=== PATIENT | female | born 1970 | race Caucasian/White ===

== ENCOUNTER → 2019-05-14 10:40 | Outpatient (CLI) | payer OTHER, SELFPAY ==
--- NOTE | ~2019-05-14 | US_ITS ---
EXAMINATION: US thyroid DATE: 05/14/2019 11:05 INDICATION: Thyroid nodule TECHNIQUE: Multiple ultrasound images of the thyroid were obtained. COMPARISON: None. FINDINGS: The right thyroid lobe measures 4.6 x 1.8 x 1.5 cm. The left thyroid lobe measures 3.7 x 1.2 x 1.2 c m. Thyroid isthmus measures 2 mm in thickness. No significant interval change in a 5 mm solid hypoech oic wider than tall nodule with smooth margins and without internal echogenic foci (TI-RADS 4, modera tely suspicious , FNA if >=1.5 cm, annual followup is >1 cm) in the mid left thyroid. There is normal echotexture, echogenicity and vascular flow throughout the thyroid gland. IMPRESSION: 1. No interval change in a likely benign left thyroid nodule which does not meet criteria for either biopsy or follow-up. Reviewed, dictated and finalized at location B. IMPRESSION: 1. No interval change in a likely benign left thyroid nodule which does not kristopher t criteria for either biopsy or follow-up.
== END ==
PROVIDERS: PCP Physician Assistant; Visit Provider Internal Medicine Endocrinology, Diabetes & Metabolism
DX: E04.1 Nontoxic single thyroid nodule (principal)
CPT/HCPCS: 76536

== ENCOUNTER 2019-11-23 15:39 | Outpatient (CLI) | payer OTHER, SELFPAY ==
--- NOTE | ~2019-11-23 | MM_ITS ---
EXAMINATION: MM screening [facility] BI w toya HISTORY: Screening TECHNIQUE: Craniocaudal and mediolateral oblique 3-D tomosynthesis images were obtained and synthetic 2-D images were generated. CAD analysis was submitted and interpreted. COMPARISON: Comparison to multiple prior studies sequentially, with oldest reviewed study dated 08/2017. BREAST PARENCHYMAL COMPOSITION: There are scattered areas of fibroglandular density. FINDINGS: There is a focal asymmetry centrally in the right breast on CC view. The left breast is sta ble without evidence for malignancy. IMPRESSION: 1. Focal right breast asymmetry centrally on CC view. 2. Additional mammographic views and possible breast ultrasound are recommended. BI-RADS Category 0: Incomplete: Needs additional imaging evaluation. Reviewed, dictated and finalized at location A. IMPRESSION: 1. Focal right breast asymmetry centrally on CC view. 2. Additional mammographic views and possible breast ultrasound are recommended . BI-RADS Category 0: Incomplete: Needs additional imaging evaluation.
== END 2019-11-23 15:40 | disposition home or self-care (01) ==
LOC: ANHIMG 15:42
PROVIDERS: PCP Physician Assistant; Visit Provider Physician Assistant
DX: Z12.31 Encounter for screening mammogram for malignant neoplasm of breast (principal); R92.8 Other abnormal and inconclusive findings on diagnostic imaging of breast
CPT/HCPCS: 77063; 77067

== ENCOUNTER → 2019-12-13 09:18 | Outpatient (CLI) | payer OTHER, SELFPAY ==
--- NOTE | ~2019-12-13 | MMUS_ITS ---
EXAMINATION: MM diagnostic mammo unilat RT, US breast RT complete HISTORY: Right breast asymmetry follow-up TECHNIQUE: Additional 3-D tomosynthesis images of the right breast were performed and synthetic 2-D i mages were generated. CAD analysis was submitted and interpreted. High resolution right breast ultras ound was performed. COMPARISON: Comparison to multiple prior studies sequentially, with oldest reviewed study dated 08/2017. BREAST PARENCHYMAL COMPOSITION: BREAST PARENCHYMAL COMPOSITION: There are scattered areas of fibroglandular density. FINDINGS: MAMMOGRAPHIC FINDINGS: There are no suspicious masses, calcifications or architectural distortion in the right breast to sug gest malignancy. ULTRASOUND: Right breast ultrasound, complete: Normal heterogeneous echotexture without focal solid or cystic mas s. IMPRESSION: 1. No evidence for malignancy in the right breast. 2. Routine yearly screening mammogram and regular clinical breast examination are recommended. BI-RADS Category 1: Negative Reviewed, dictated and finalized at location A. TION ACCOUNTANT IMPRESSION: 1. No evidence for malignancy in the right breast. 2. Routine yearly screening mammogram and regular clinical breast examination a re recommended. BI-RADS Category 1: Negative
== END ==
PROVIDERS: PCP Physician Assistant; Visit Provider Physician Assistant
DX: R92.8 Other abnormal and inconclusive findings on diagnostic imaging of breast (principal)
CPT/HCPCS: 76641; 77065

== ENCOUNTER 2020-02-15 00:36 | Outpatient (CLI) | payer OTHER, SELFPAY ==
[2020-02-15 19:42] LABS: SARS-CoV-2 RNA PCR Negative
== END 2020-02-15 00:37 | disposition home or self-care (01) ==
LOC: ANHCOVIDDT 00:36
PROVIDERS: PCP Physician Assistant; Visit Provider Internal Medicine Gastroenterology
DX: Z01.812 Encounter for preprocedural laboratory examination (principal); Z20.822 Contact with and (suspected) exposure to COVID-19
CPT/HCPCS: C9803; U0003

== ENCOUNTER 2020-02-18 00:12 | Day surgery (SDC) | payer OTHER, SELFPAY ==
[2020-02-02 11:31] VITALS: BMI 29.3
[2020-02-18 07:44] VITALS: BP 107/61; PULSE 53; RESP 18; TEMP 36.3; O2SAT 99; BMI 29.5
[2020-02-18] MEDS: LACTATED RINGERS 1,000 ML 150 ML IV CONT (07:47)
--- NOTE | 2020-02-18 08:04 | WPDANESEPPF ---
Anes - Initial Pre Proc Eval Procedure: Operation Date: 02/18/20 08:30 Proposed Procedures p Screening Colonoscopy - Pool Uribe MD Date/Time: 02/18/20 08:04 Surgeon: Pool Uribe MD Pre Op Diagnosis: Neoplasm Screening Patient Data Age: 49 Gender: F Height: 5 ft 5 in Weight: 80.6 kg Last Vital Signs Temp 97.3 F L 02/18/20 07:44 Pulse 53 L 02/18/20 07:44 Resp 18 02/18/20 07:44 BP 107/61 02/18/20 07:44 Pulse Ox 99 02/18/20 07:44 Allergies Allergy/AdvReac Type Severity Reaction Status Date / Time meperidine [From Demerol] Allergy Severe Vomiting Verified 02/18/20 07:41 prochlorperazine Allergy Severe Swelling Verified 02/18/20 07:41 [From Compazine] of Lip/Tongue/Throat shellfish derived Allergy Severe Anaphylactic Verified 02/18/20 07:41 Shock Home Medications Medication Instructions Recorded Confirmed Type estradiol 1 mg PO DAILY 02/02/20 02/18/20 History Patient hx anesthesia problems: none Family hx anesthesia problems: none PMFSH Past Medical History Medical History (Updated 11/30/19 @ 09:39 by Dillon Cat) Colonoscopy planned Family History Family History (Updated 09/11/17 @ 09:24 by DOCTOR UNKNOWN) Grandparent Family history of lung cancer Family history of malignant neoplasm of breast Social History Social History Smoking status: Never smoker Second hand tobacco smoke exposure: No Alcohol intake: current Substance use: never Substance use type: does not use Spiritual care concerns: No Anes - Eval Final PreProcedure Day of Procedure 02/18/20 08:04 Patient weight: overweight Heart: regular rate and rhythm Lungs: clear to auscultation Airway: Mallampati scale class II Neurological: alert and oriented Last oral intake: >/= 8 hours ASA classification: II Emergent: no Anesthetic plan: proceed Anesthesia type and monitoring: general GIVS and standard monitoring Informed Consent: The patient's anesthetic plan and its attendant risks and benefits were discussed with the patient/family/POA. Questions were solicited and answers provided to the satisfaction of the patient/family/POA.
--- NOTE | 2020-02-18 08:17 | PM.HPGS ---
History of Present Illness History of Present Illness Consent: Risks, benefits, and alternatives have been discussed and questions answered. Patient agrees to proceed with procedure. Chief complaint: Neoplasm Screening Narrative: Carolyn Tuttle is a 49 year old female here for first screening colonoscopy Review of Systems Constitutional: Constitutional: Denies headache(s) and Denies weakness Eyes: Eyes: Denies blurry vision ENT: Reports Normal hearing present, Denies headache(s) and Denies neck pain Cardiovascular: Cardiovascular: Denies chest pain and Denies dyspnea Respiratory: Respiratory: Denies dyspnea Gastrointestinal: Gastrointestinal: Reports no additional gastrointestinal complaints Genitourinary: Genitourinary: Denies dysuria Musculoskeletal: Musculoskeletal: Denies neck pain Integumentary/Breasts: Skin/Breast: Denies dry skin Neurologic: Reports Normal hearing present, Denies headache(s) and Denies weakness Psychiatric: Psychiatric: Denies anxiety Endocrine: Endocrine: Denies change in body appearance Hematologic/Lymphatic: Hematologic/Lymphatic: Denies easy bleeding Allergic/Immunologic: Allergic/Immunologic: Denies urticaria PMF Past Medical History Medical History (Updated 02/18/20 @ 08:17 by Pool Uribe MD) Colon cancer screening Colonoscopy planned Family History Family History (Updated 09/11/17 @ 09:24 by DOCTOR UNKNOWN) Grandparent Family history of lung cancer Family history of malignant neoplasm of breast Social History Social History Smoking status: Never smoker Second hand tobacco smoke exposure: No Alcohol intake: current Substance use: never Substance use type: does not use Spiritual care concerns: No Meds Home Medications and Allergies Home Medications Medication Instructions Recorded Confirmed Type estradiol 1 mg PO DAILY 02/02/20 02/18/20 History Allergies Allergy/AdvReac Type Severity Reaction Status Date / Time meperidine [From Demerol] Allergy Severe Vomiting Verified 02/18/20 07:41 prochlorperazine Allergy Severe Swelling Verified 02/18/20 07:41 [From Compazine] of Lip/Tongue/Throat shellfish derived Allergy Severe Anaphylactic Verified 02/18/20 07:41 Shock Vital Signs Vital Signs - 24 hr 02/18/20 07:44 Temperature 97.3 F L Pulse Rate 53 L Respiratory Rate 18 Blood Pressure 107/61 Pulse Oximetry 99 Exam Const: General: comfortable and no acute distress HENMT: General nose exam: Normal nares present Eyes: General: appearance normal, both eyes and all related structures Neck: Neck: no JVD Resp: Auscultation: clear to auscultation bilaterally Cardio: Rate: regular rate Rhythm: regular rhythm GI: Inspection: non-distended GI Palp: Yes Soft to palpation Skin: General skin exam: normal color Neuro: General: gait normal Speech: normal speech Extrem: General: normal to inspection Psych: Mental Status: mental status grossly normal Assessment and Plan Assessment and plan (1) Colon cancer screening: Code(s): Z12.11 - Encounter for screening for malignant neoplasm of colon Status: Acute Assessment and Plan: will proceed with colonoscopy
[2020-02-18 08:44] VITALS: BP 91/52; PULSE 63; RESP 22; O2SAT 100
[2020-02-18 08:54] VITALS: BP 93/55; PULSE 60; RESP 22; O2SAT 99
[2020-02-18 09:04] VITALS: BP 105/72; PULSE 58; RESP 18; O2SAT 100
[2020-02-18 09:09] VITALS: BP 109/70; PULSE 55; RESP 20; O2SAT 100
== END 2020-02-18 09:14 | disposition home or self-care (01) ==
PROVIDERS: PCP Physician Assistant; Visit Provider Internal Medicine Gastroenterology
PROC: 0DJD8ZZ Inspection of Lower Intestinal Tract, Via Natural or Artificial Opening Endoscopic (ICD-10-PCS; CPT 45378; principal; 2020-02-18 08:30)
DX: Z12.11 Encounter for screening for malignant neoplasm of colon (principal); K57.30 Diverticulosis of large intestine without perforation or abscess without bleeding
CPT/HCPCS: 45378; C9803; J2704; J7120; U0003

== ENCOUNTER 2020-02-18 06:57 | Outpatient (CLI) | payer OTHER, SELFPAY | END 2020-02-18 06:58 | disposition home or self-care (01) | PROVIDERS: PCP Physician Assistant; Visit Provider Urology | DX: N39.3 Stress incontinence (female) (male) (principal); Z01.812 Encounter for preprocedural laboratory examination | CPT/HCPCS: 87086 ==

== ENCOUNTER 2020-02-22 03:05 | Outpatient (CLI) | payer OTHER, SELFPAY ==
[2020-02-22 19:22] LABS: SARS-CoV-2 RNA PCR Negative
== END 2020-02-22 03:06 | disposition home or self-care (01) ==
LOC: ANHCOVIDDT 03:05
PROVIDERS: PCP Physician Assistant; Visit Provider Urology
DX: Z01.812 Encounter for preprocedural laboratory examination (principal); Z20.822 Contact with and (suspected) exposure to COVID-19
CPT/HCPCS: C9803; U0003; U0005

== ENCOUNTER 2020-02-25 02:27 | Day surgery (SDC) | payer OTHER, SELFPAY ==
[2020-02-17 13:36] VITALS: BMI 29.3
--- NOTE | 2020-02-20 08:55 | PM.IMHP ---
H&P: HPI History of Present Illness Date/Time: 02/20/20 08:55 Chief Complaint: BERT Narrative: Carolyn Tuttle is a 49 year old female with BERT Review of Systems Review of Systems: All systems reviewed & are unremarkable except as noted in HPI and below PMFSH Past Medical History Medical History (Updated 02/20/20 @ 08:56 by Sea Reynolds MD) Colon cancer screening Colonoscopy planned Family History Family History (Updated 09/11/17 @ 09:24 by DOCTOR UNKNOWN) Grandparent Family history of lung cancer Family history of malignant neoplasm of breast Social History Social History Smoking status: Never smoker Second hand tobacco smoke exposure: No Alcohol intake: current Substance use: never Substance use type: does not use Spiritual care concerns: No Meds Home Medications and Allergies Home Medications Medication Instructions Recorded Confirmed Type estradiol 1 mg PO DAILY 02/02/20 02/18/20 History Allergies Allergy/AdvReac Type Severity Reaction Status Date / Time meperidine [From Demerol] Allergy Severe Vomiting Verified 02/18/20 07:41 prochlorperazine Allergy Severe Swelling Verified 02/18/20 07:41 [From Compazine] of Lip/Tongue/Throat shellfish derived Allergy Severe Anaphylactic Verified 02/18/20 07:41 Shock Exam Const: General: cooperative and healthy appearing Eyes: General: appearance normal, both eyes and all related structures Resp: Effort & Inspection: normal respiratory effort and able to speak in complete sentences GI: Rectal Exam: deferred Skin: General skin exam: normal color Neuro: General: oriented to person Assessment and Plan Assessment and plan (1) BERT (stress urinary incontinence, female): Code(s): N39.3 - Stress incontinence (female) (male) Status: Acute Assessment and Plan: urethral sling
[2020-02-25 07:14] VITALS: BP 106/71; PULSE 50; RESP 20; TEMP 36.6; O2SAT 100
[2020-02-25] MEDS: LACTATED RINGERS 1,000 ML 30 ML IV CONT (07:40)
--- NOTE | 2020-02-25 08:20 | WPDHPUPDATE1 ---
History and Physical Update Update Date/Time: 02/25/20 08:20 History and Physical has been reviewed, including an updated exam of the patient. There are NO changes in the patient's condition. Risks, benefits, and alternatives have been discussed and questions answered. Patient agrees to proceed with procedure.
--- NOTE | 2020-02-25 08:23 | WPDANESEPPF ---
Anes - Initial Pre Proc Eval Procedure: Operation Date: 02/25/20 09:15 Proposed Procedures p Urethral Sling - Sea Reynolds MD Date/Time: 02/25/20 08:23 Surgeon: Sea Reynolds MD Pre Op Diagnosis: stress incontinence Patient Data Age: 49 Gender: F Height: 5 ft 5 in Weight: 80 kg Allergies Allergy/AdvReac Type Severity Reaction Status Date / Time meperidine [From Demerol] Allergy Severe Vomiting Verified 02/18/20 07:41 prochlorperazine Allergy Severe Swelling Verified 02/18/20 07:41 [From Compazine] of Lip/Tongue/Throat shellfish derived Allergy Severe Anaphylactic Verified 02/18/20 07:41 Shock Home Medications Medication Instructions Recorded Confirmed Type estradiol 1 mg PO DAILY 02/02/20 02/18/20 History Patient hx anesthesia problems: none Family hx anesthesia problems: none PMFSH Past Medical History Medical History (Updated 02/20/20 @ 08:56 by Sea Reynolds MD) Colon cancer screening Colonoscopy planned Family History Family History (Updated 09/11/17 @ 09:24 by DOCTOR UNKNOWN) Grandparent Family history of lung cancer Family history of malignant neoplasm of breast Social History Social History Smoking status: Never smoker Second hand tobacco smoke exposure: No Alcohol intake: never Alcohol use details: STATES MAYBE 6 DRINKS A MONTH Substance use: never Substance use type: does not use Living arrangements: with family Spiritual care concerns: No Anes - Eval Final PreProcedure Day of Procedure 02/25/20 08:23 Patient weight: overweight Heart: regular rate and rhythm Lungs: clear to auscultation Airway: Mallampati scale Neurological: alert and oriented Last oral intake: >/= 8 hours ASA classification: II Emergent: no Anesthetic plan: proceed Anesthesia type and monitoring: general GIVS and standard monitoring Informed Consent: The patient's anesthetic plan and its attendant risks and benefits were discussed with the patient/family/POA. Questions were solicited and answers provided to the satisfaction of the patient/family/POA.
[2020-02-25] MEDS: ceFAZolin 2 GM/D5W 50 ML 2 GM/50 ML BAG IVPB (09:11)
[2020-02-25] MEDS: LIDO 1%/EPINEPHRINE 1:100,000 50 ML VIAL 10 ML INFILTRATE (09:27)
[2020-02-25] MEDS: KETOROLAC 30 MG/ML VIAL (*BKC) 15 MG IV PUSH (09:30)
--- NOTE | 2020-02-25 09:36 | PM.PROC ---
Procedure Note - Detailed Date of procedure: 02/25/20 Pre-op diagnosis: stress incontinence Stress urinary incontinence Post-op diagnosis: same Procedure performed: Transobturator Mid-urethral sling Cystoscopy Description of procedure: This is a patient with confirmed stress urinary incontinence. She desires correction. She understands the risks of bleeding, infection, damage to the urinary tract, lack of cure of stress incontinence, recurrence of stress incontinence, postoperative voiding dysfunction including incontinence and retention, need for ancillary procedures to loosen remove the sling, postoperative voiding dysfunction including retention and overactive bladder, hip and leg pain, dyspareunia, mesh related complications including exposure and extrusion. She agrees to proceed. She understands it will not help overactive bladder symptoms if present. She was correctly identified and informed consent obtained. She is brought to the operating room. She was given appropriate anesthesia. She was placed in the dorsal lithotomy position. All pressure points were padded. She was given appropriate perioperative antibiotics and a time-out performed. A Calvin catheter is placed. I marked out the thigh incisions anesthetize the skin and made those incisions. I anesthetized the anterior vaginal wall over the mid urethra. I made a 1 cm incision. I dissected out laterally taking great care not to injure the urethra or the vaginal wall. Passed the helical trocars 1st on the left and then on the right from the thigh incision towards the vaginal incision. Sling was connected to the trocars and brought out through the thigh incision. I tensioned the sling appropriately. I cut and removed the plastic sheaths. I closed the incision with 2 0 Vicryl. I then performed cystoscopy. There was no surgical artifact or abnormalities inside the bladder. The urethra was normal without surgical artifact. I cut the excess sling material. I closed the incisions with glue. She was awakened and transferred to the PACU in stable condition. Implants: Mid urethral sling Surgeon: Sea Reynolds MD Drains: No Packing: No Pathology: none sent Complications: No immediate complications Condition: stable Disposition: PACU
[2020-02-25 09:40] VITALS: BP 87/58; PULSE 70; RESP 14
[2020-02-25 10:10] VITALS: BP 107/68; PULSE 73; RESP 14
[2020-02-25 10:40] VITALS: BP 109/65; PULSE 60; RESP 14
--- NOTE | 2020-02-25 11:59 | SUR.PHASEII ---
PT URINATED WITHOUT ISSUE AT 1040.
== END 2020-02-25 11:00 | disposition home or self-care (01) ==
PROVIDERS: PCP Physician Assistant; Visit Provider Urology
PROC: (CPT 57288; principal; 2020-02-25 09:15)
DX: N39.3 Stress incontinence (female) (male) (principal)
CPT/HCPCS: 57288; 87086; A9270; C1771; C9803; J0690; J1885; J2250; J2405; J2704; J3010; J7030; J7120; U0003; U0005

== ENCOUNTER 2020-12-29 09:05 | Outpatient (CLI) | payer OTHER, SELFPAY ==
--- NOTE | ~2020-12-29 | MM_ITS ---
EXAMINATION: MM screening [facility] BI w toya HISTORY: Screening mammogram TECHNIQUE: Craniocaudal and mediolateral oblique 3-D tomosynthesis images were obtained and synthetic 2-D images were generated. CAD analysis was submitted and interpreted. COMPARISON: 12/13/2019, 11/23/2019, 10/27/2018 BREAST PARENCHYMAL COMPOSITION: There are scattered areas of fibroglandular density. FINDINGS: There is no evidence of suspicious mass, calcification, or architectural distortion to sugg est malignancy in either breast. There has been no suspicious interval change. IMPRESSION: 1. No mammographic evidence of malignancy. 2. Recommend routine screening mammography in one year. BI-RADS Category 1: Negative Reviewed, dictated and finalized at location A. WELDER
== END 2020-12-29 09:06 | disposition home or self-care (01) ==
LOC: ANHIMG 09:06
PROVIDERS: PCP Physician Assistant; Visit Provider Physician Assistant
DX: Z12.31 Encounter for screening mammogram for malignant neoplasm of breast (principal)
CPT/HCPCS: 77063; 77067

== ENCOUNTER → 2021-10-30 09:50 | Outpatient (CLI) | payer OTHER, SELFPAY ==
--- NOTE | ~2021-10-30 | US_ITS ---
US right upper quadrant DATE: 10/30/2021 10:28 INDICATION: Right upper quadrant abdominal pain TECHNIQUE: Real-time imaging and Doppler analysis COMPARISON: 07/23/2018 right upper quadrant abdominal ultrasound FINDINGS: Normal hepatopedal portal venous flow direction. There is an approximately 1.5 cm hyperechoic area at the left hepatic lobe, likely a hepatic hemangio ma. No other hepatic space-occupying mass lesion is evident. No gallstones or gallbladder wall thickening or abnormal pericholecystic fluid collection. Negative s onographic Alvarez's sign. The common bile duct measures 4 mm, normal. No pancreatic mass lesion or ductal dilatation is noted. IMPRESSION: 1.5 cm hepatic hemangioma Reviewed, dictated and finalized at Location A. Reviewed, dictated and finalized at location B. IMPRESSION: 1.5 cm hepatic hemangioma
== END ==
PROVIDERS: PCP Physician Assistant; Visit Provider Physician Assistant
DX: R10.11 Right upper quadrant pain (principal)
CPT/HCPCS: 76705

== ENCOUNTER → 2022-01-08 13:57 | Outpatient (CLI) | payer OTHER, SELFPAY ==
--- NOTE | ~2022-01-08 | MM_ITS ---
EXAMINATION: MM screening [facility] BI w toya HISTORY: Screening mammogram TECHNIQUE: Craniocaudal and mediolateral oblique 3-D tomosynthesis images were obtained and synthetic 2-D images were generated. CAD analysis was submitted and interpreted. COMPARISON: 12/29/2020, 12/13/2019, 11/23/2019, 10/27/2018 BREAST PARENCHYMAL COMPOSITION: There are scattered areas of fibroglandular density. FINDINGS: No suspicious mass, calcification, or architectural distortion are identified in either tucker ast to suggest malignancy. There has been no suspicious interval change. IMPRESSION: 1. No mammographic evidence of malignancy. 2. Recommend routine screening mammography in one year. BI-RADS Category 1: Negative Reviewed, dictated and finalized at location A. DIVING TEACHER
== END ==
PROVIDERS: PCP Physician Assistant; Visit Provider Physician Assistant
DX: Z12.31 Encounter for screening mammogram for malignant neoplasm of breast (principal)
CPT/HCPCS: 77063; 77067

== ENCOUNTER → 2022-06-27 16:00 | Outpatient (CLI) | payer OTHER, SELFPAY ==
--- NOTE | ~2022-06-27 | XR_ITS ---
AP and lateral views of the left hip Clinical history: Pain Findings: No acute fracture or dislocation is seen. Osseous alignment is anatomic. Bilateral hip and SI joint spaces are preserved. Soft tissues are unremarkable. Impression: No significant abnormality is seen. Reviewed, dictated and finalized at location . Impression: No significant abnormality is seen.
== END ==
PROVIDERS: PCP Physician Assistant; Visit Provider Physician Assistant
DX: S73.006A Unspecified dislocation of unspecified hip, initial encounter (principal); X58.XXXA Exposure to other specified factors, initial encounter
CPT/HCPCS: 73502

== ENCOUNTER → 2022-07-23 14:04 | Outpatient (CLI) | payer OTHER, SELFPAY ==
--- NOTE | ~2022-07-23 | MR_ITS ---
EXAMINATION: MR hip LT wo con DATE: 07/23/2022 15:00 INDICATION: Left hip pain. TECHNIQUE: Magnetic resonance imaging (MRI) of the left hip was performed without intravenous contras t. COMPARISON: Left hip radiographs 06/27/2022 FINDINGS: Bones/cartilage: Bone alignment is normal. No fracture. The hip joints demonstrate tiny osteophytes. Small field-of-vi ew images of left hip demonstrate partial-thickness cartilage loss superiorly and posteriorly. Labrum: There is a tear of the left acetabular labrum. Fluid: There is no hip joint effusion. There is mild right trochanteric bursitis and moderate left trochante kirsten bursitis. Soft tissues: The right gluteal tendons are normal. There is mild left gluteus minimus tendinopathy. There is edema in left gluteus minimus and gluteus medius muscles, consistent with mild strain (grade 1). There is a partial tear of left iliotibial band adjacent to the gluteus medius muscle. There is mild tendinopa thy of the hamstring origins bilaterally. The iliopsoas tendons are normal. IMPRESSION: 1. Partial tear of left iliotibial band. 2. Mild strains of left gluteus minimus and gluteus medius muscles. 3. Mild osteoarthritis of the hips. Reviewed, dictated and finalized at location A.
== END ==
PROVIDERS: PCP Physician Assistant; Visit Provider Physician Assistant
DX: S76.812A Strain of other specified muscles, fascia and tendons at thigh level, left thigh, initial encounter (principal); X58.XXXA Exposure to other specified factors, initial encounter; M16.0 Bilateral primary osteoarthritis of hip
CPT/HCPCS: 73721

== ENCOUNTER → 2023-01-28 16:00 | Outpatient (CLI) | payer OTHER, SELFPAY ==
--- NOTE | ~2023-01-28 | MM_ITS ---
EXAMINATION: MM screening [facility] BI w toya HISTORY: Screening mammogram TECHNIQUE: Craniocaudal and mediolateral oblique 3-D tomosynthesis images were obtained and synthetic 2-D images were generated. CAD analysis was submitted and interpreted. COMPARISON: 01/08/2022, 12/29/2020 bilateral screening mammogram examinations BREAST PARENCHYMAL COMPOSITION: There are scattered areas of fibroglandular density. FINDINGS: There is no evidence of suspicious mass, calcification, or architectural distortion to sugg est malignancy in either breast. There has been no suspicious interval change. IMPRESSION: 1. No mammographic evidence of malignancy. 2. Recommend routine screening mammography in one year. BI-RADS Category 1: Negative Reviewed, dictated and finalized at location A. THERAPIST
== END ==
PROVIDERS: PCP Physician Assistant; Visit Provider Physician Assistant
DX: Z12.31 Encounter for screening mammogram for malignant neoplasm of breast (principal)
CPT/HCPCS: 77063; 77067

== ENCOUNTER 2023-05-16 15:43 | Emergency (ER) | payer OTHER, SELFPAY ==
--- NOTE | ~2023-05-16 | US_ITS ---
EXAMINATION: US venous doppler UE RT DATE: 05/16/2023 16:43 INDICATION: Right upper limb swelling and bruising TECHNIQUE: Grayscale images without and with compression and Doppler images of the right upper extrem ity veins were obtained. COMPARISON: None. FINDINGS: The right internal jugular vein, subclavian vein, axillary vein, brachial vein, basilic vein, cephali c vein, radial vein, and ulnar vein are patent. IMPRESSION: 1. Patent right upper extremity veins. No evidence of venous thrombosis. Reviewed, dictated and finalized at location A.
--- NOTE | 2023-05-16 15:45 | ED.RECABL ---
HPI - Recheck/Abnormal Lab/Rx General Chief Complaint: Recheck/Abnormal Lab/Rx Stated Complaint: gave platelets yesterday- bruising on arm Time Seen by Provider: 05/16/23 15:46 Focused HPI: Carolyn is a 52-year-old female patient presenting to the ER today with complaints of bruising to the right antecubital area. Reports that she gave platelet yesterday and has developed swelling and pain to the right arm. Has a large bruised area to the right antecubital/upper arm/forearm without obvious hematoma. Is concerned about a DVT General: Well-developed, well nourished, in no apparent distress Head: Normocephalic, atraumatic. Cardio: Regular rate and rhythm, s1 and s2 normal, no murmur appreciated. Resp: Clear to auscultation bilaterally, no rhonchi, rales, wheezing or rubs. Extremities: No deformity, no edema, no cyanosis, capillary refill less than 2 seconds, peripheral pulses palpable and strong. Integumentary: [place], warm, and dry, large bruising to the right arm/antecubital without hematoma Patient screened in triage and initial orders placed. Additional care and disposition to be based upon diagnostic testing and treatment. Source: patient Mode of arrival: ambulatory Limitations: no limitations Related Data Home Medications Medication Instructions Recorded Confirmed estradiol 1 mg tablet 1 mg PO DAILY 02/02/20 02/25/20 Allergies Allergy/AdvReac Type Severity Reaction Status Date / Time meperidine [From Demerol] Allergy Severe Vomiting Verified 02/25/20 08:29 prochlorperazine Allergy Severe Swelling Verified 02/25/20 08:29 [From Compazine] of Lip/Tongue/Throat shellfish derived Allergy Severe Anaphylactic Verified 02/25/20 08:29 Shock Review of Systems Review of Systems: Pertinent positives per HPI. Patient denies any fever, chills, rash, headache, visual changes, dizziness, cough, runny nose, sore throat, shortness of breath, chest pain, palpitations, nausea, vomiting, diarrhea, constipation, abdominal pain, or any urinary issues. [facility], [facility] Past Medical History Medical History Colon cancer screening Colonoscopy planned Family History Family History Grandparent Family history of lung cancer Family history of malignant neoplasm of breast Social History Social History Smoking status: Never smoker Second hand tobacco smoke exposure: No Alcohol intake: current Alcohol use details: STATES MAYBE 6 DRINKS A MONTH Substance use: never Substance use type: does not use Living arrangements: with family Spiritual care concerns: No Comments At the time of my signature, I reviewed and agree with the nursing past medical, surgical, social, and family history. There is no relevant family history pertinent to the patient complaint. Exam Narrative: General: Well-developed, well nourished, in no apparent distress Head: Normocephalic, atraumatic. Cardio: Regular rate and rhythm, s1 and s2 normal, no murmur appreciated. Resp: Clear to auscultation bilaterally, no rhonchi, rales, wheezing or rubs. Extremities: No deformity, no edema, no cyanosis, capillary refill less than 2 seconds, peripheral pulses palpable and strong. Integumentary: [place], warm, and dry, large bruising to the right arm/antecubital without hematoma Course Course Emergency Course: Portions of this record may have been created with voice recognition software. Vital Signs Vital signs: Vital Signs Temperature 36.6 C 05/16/23 15:50 Pulse Rate 62 05/16/23 15:50 Respiratory Rate 18 05/16/23 15:50 Blood Pressure 121/53 L 05/16/23 15:50 Pulse Oximetry 97 05/16/23 15:50 Oxygen Delivery Room Air 05/16/23 15:50 Temperature 36.6 C 05/16/23 15:50 Pulse Rate 62 05/16/23 15:50 Respiratory Rate 18 05/16/23 15:
[2023-05-16 15:50] VITALS: BP 121/53; PULSE 62; RESP 18; TEMP 36.6; O2SAT 97
[2023-05-16 16:14] LABS: Basophils Absolute Auto 0.1 K/mm3 (0.0-0.1); Basophils Percent Auto 1.5 % (0.2-1.2); Eosinophils Absolute Auto 0.2 K/mm3 (0-0.3); Eosinophils Percent Auto 4.2 % (0-4.4); Hematocrit 36.7 % (37.0-47.0); Immature Granulocyte Absolute 0.01 K/mm3 (0.00-0.031); Immature Granulocyte Percent A 0.2 % (0-0.5); Lymphocytes Absolute Auto 1.74 K/mm3 (0.9-3.2); Lymphocytes Percent Auto 36.6 % (18.3-44.2); Mean Corpuscular HGB Conc 32.7 g/dl (32-36); Mean Corpuscular Hemoglobin 30.8 pg (26-34); Mean Corpuscular Volume 94.1 fl (80-100); Mean Platelet Volume 10.7 fl (7.4-10.4); Monocytes Absolute Auto 0.5 K/mm3 (0.1-0.6); Monocytes Percent Auto 9.5 % (2.6-8.5); Neutrophils Absolute Auto 2.3 K/mm3 (1.3-6.7); Platelet Count Result 233 k/mm3 (150-375); White Blood Count 4.8 K/mm3 (4.5-10.0)
[2023-05-16 16:15] LABS: Alanine Aminotransferase 21 U/L (6-35); Albumin Level 4.5 g/dL (3.5-5.1); Alkaline Phosphatase 58 U/L (38-126); Anion Gap 5 mmol/L (4-12); Aspartate Amino Transferase 33 U/L (14-36); Bilirubin,Total 0.4 mg/dL (0.2-1.3); Blood Urea Nitrogen 15 mg/dL (7-17); Calcium 9.4 mg/dL (8.4-10.2); Carbon Dioxide 29 mmol/L (22-30); Chloride 105 mmol/L (98-107); Estimated CRCL calculation 73 ml/min; Estimated Glomerular Filt Rate > 60; Glucose 84 mg/dL (65-110); Potassium 3.9 mmol/L (3.4-5.0); Sodium 139 mmol/L (137-145)
[2023-05-16 16:26] LABS: Prothrombin Time 13.9 Seconds (11.1-14.7)
[2023-05-16 16:27] LABS: Partial Thromboplastin Time 32.3 Seconds (22.3-36.8)
== END 2023-05-16 17:14 | disposition home or self-care (01) ==
LOC: ANHED 17:08
PROVIDERS: Emergency Provider Nurse Practitioner Family; PCP Physician Assistant
DX: R58 Hemorrhage, not elsewhere classified (principal)
CPT/HCPCS: 36415; 80053; 85025; 85610; 85730; 93971; 99284

== ENCOUNTER 2023-05-29 14:03 | Emergency (ER) | payer OTHER, SELFPAY ==
--- NOTE | ~2023-05-29 | XR_ITS ---
XR shoulder LT min 2V 05/29/2023 14:51 Indication: Left shoulder pain Procedure: 4 views of left shoulder Comparison: No prior studies for comparison. Findings: No fracture, subluxation or dislocation. There is anatomic alignment. No soft tissue abnorm ality. Surrounding osseous structures are unremarkable. No foreign bodies. Impression: 1: No acute abnormality of the left shoulder. Reviewed, dictated and finalized at location B. Impression: 1: No acute abnormality of the left shoulder.
--- NOTE | ~2023-05-29 | XR_ITS ---
[id number] 05/29/2023 14:51 Indication: Neck pain Procedure: 3 views cervical spine Comparison: No prior studies for comparison. Findings: Straightening of cervical lordosis. There is disc narrowing and endplate hypertrophy at C6- 7. No fracture or traumatic malalignment. No prevertebral soft tissue swelling. There is uncinate and facet hypertrophy at C6-7. Lung apices are normal. Impression: 1: Moderate spondylosis at C6-7. Reviewed, dictated and finalized at location B. Impression: 1: Moderate spondylosis at C6-7.
[2023-05-29 14:24] VITALS: BP 131/94; PULSE 51; RESP 16; TEMP 36.4; O2SAT 100
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
== END 2023-05-29 15:36 | disposition home or self-care (01) ==
PROVIDERS: Emergency Provider Nurse Practitioner Family; PCP Physician Assistant
DX: S16.1XXA Strain of muscle, fascia and tendon at neck level, initial encounter (principal); M62.838 Other muscle spasm; M47.812 Spondylosis without myelopathy or radiculopathy, cervical region; V49.40XA Driver injured in collision with unspecified motor vehicles in traffic accident, initial encounter
CPT/HCPCS: 72040; 73030; 99284

== ENCOUNTER 2023-07-03 16:05 | Outpatient (CLI) | payer OTHER, SELFPAY ==
--- NOTE | ~2023-07-03 | CT_ITS ---
EXAMINATION: CTA chest PE protocol DATE: 07/03/2023 16:43 INDICATION: Dyspnea TECHNIQUE: Computed tomography (CT) pulmonary angiogram of the chest was performed with 100 mL Omnipa que-350 intravenous contrast. Additional 3D reconstructions utilizing coronal maximum intensity proje ction (MIP) were performed. Automated exposure control and iterative reconstruction technique were em ployed. The dose-length product was 279.34 mGy-cm. COMPARISON: None FINDINGS: No pulmonary embolism. No pneumonia, pulmonary edema, pleural effusion or pneumothorax. Heart size is normal. No pericardial effusion. Thoracic aorta is normal in caliber with no dissection. No patholog ically enlarged thoracic lymphadenopathy. The left upper abdomen is unremarkable. Mild thoracic spond ylosis. IMPRESSION: 1. No pulmonary embolism or other acute cardiopulmonary disease. Reviewed, dictated and finalized at location A.
[2023-07-03 17:26] LABS: Basophils Absolute Auto 0.1 K/mm3 (0.0-0.1); Basophils Percent Auto 1.1 % (0.2-1.2); Eosinophils Absolute Auto 0.1 K/mm3 (0-0.3); Hematocrit 37.8 % (37.0-47.0); Hemoglobin 12.1 g/dL (12.0-15.0); Lymphocytes Absolute Auto 1.47 K/mm3 (0.9-3.2); Lymphocytes Percent Auto 31.4 % (18.3-44.2); Mean Corpuscular Hemoglobin 29.8 pg (26-34); Mean Corpuscular Volume 93.1 fl (80-100); Mean Platelet Volume 10.6 fl (7.4-10.4); Monocytes Absolute Auto 0.6 K/mm3 (0.1-0.6); Monocytes Percent Auto 12.2 % (2.6-8.5); Neutrophils Absolute Auto 2.5 K/mm3 (1.3-6.7); Neutrophils Percent Auto 52.3 % (45.5-73.1); Platelet Count Result 264 k/mm3 (150-375); Red Blood Count 4.06 M/mm3 (4.2-5.4); Red Cell Distribution Width 13.1 % (11.5-14.5); White Blood Count 4.7 K/mm3 (4.5-10.0)
[2023-07-03 17:40] LABS: Alanine Aminotransferase 24 U/L (6-35); Albumin Level 3.8 g/dL (3.5-5.1); Alkaline Phosphatase 57 U/L (38-126); Anion Gap 6 mmol/L (4-12); Aspartate Amino Transferase 35 U/L (14-36); Bilirubin,Total 0.5 mg/dL (0.2-1.3); Blood Urea Nitrogen 15 mg/dL (7-17); Calcium 8.7 mg/dL (8.4-10.2); Carbon Dioxide 26 mmol/L (22-30); Chloride 103 mmol/L (98-107); Estimated Glomerular Filt Rate > 60; Glucose 81 mg/dL (65-110); Potassium 4.3 mmol/L (3.4-5.0); Sodium 135 mmol/L (137-145)
[2023-07-03 17:47] LABS: NT Pro B Type Natriuretic Pept 85 pg/mL (19.9-100)
== END 2023-07-03 16:06 | disposition home or self-care (01) ==
PROVIDERS: PCP Physician Assistant; Visit Provider Physician Assistant
DX: R06.00 Dyspnea, unspecified (principal)
CPT/HCPCS: 36415; 71275; 80053; 83880; 85025; Q9967

== ENCOUNTER 2023-09-02 11:27 | Outpatient (CLI) | payer OTHER, SELFPAY ==
--- NOTE | ~2023-09-02 | XR_ITS ---
EXAMINATION: XR chest 2V 09/02/2023 11:37 INDICATION: Hyperlipidemia PROCEDURE: 2 view chest COMPARISON: No prior studies for comparison. FINDINGS: The lungs are clear. The cardiomediastinal silhouette is within normal limits. There are no pleural effusions. There is no pneumothorax suspected. IMPRESSION: 1: NO ACUTE CARDIOPULMONARY DISEASE. Reviewed, dictated and finalized at location B.
== END 2023-09-02 11:28 ==
PROVIDERS: PCP Physician Assistant; Visit Provider Internal Medicine Cardiovascular Disease
DX: E78.5 Hyperlipidemia, unspecified (principal); Z13.9 Encounter for screening, unspecified; I49.5 Sick sinus syndrome; R07.89 Other chest pain; Z82.49 Family history of ischemic heart disease and other diseases of the circulatory system
CPT/HCPCS: 71046

== ENCOUNTER 2024-04-08 15:58 | Outpatient (CLI) | payer OTHER, SELFPAY | END 2024-04-08 15:59 | disposition home or self-care (01) | LOC: ANHIMG 15:59 | PROVIDERS: PCP Physician Assistant; Visit Provider Physician Assistant | DX: Z12.31 Encounter for screening mammogram for malignant neoplasm of breast (principal) | CPT/HCPCS: 77063; 77067 ==